=== PATIENT | female | born 1990 | race Caucasian/White ===

== ENCOUNTER → 2016-10-06 | Outpatient (CLI) | payer OTHER ==
[~2016-10-06] MED LIST: AMBIEN 10MG10 MG PO; CEPHALEXIN500 M1 PO; KLONOPIN 0.5MG0.5 MG PO; LAMICTAL 25MG T25 MG PO; LOMOTIL 0.025 M1 TAB PO; NAPROSYN500 MG PO; NO HOME MEDICATIONS; NORCO 325 MG-51 TAB PO; PERCOCET 325 MG1 TA2 PO; PHENERGAN 25 TA25 MG PO; ZOFRAN 4MG T4 MG/TAB PO
== END ==
LOC: BHSO 15:58
DX: F33.0 Major depressive disorder, recurrent, mild (principal)

== ENCOUNTER → 2016-10-09 | Outpatient (CLI) | payer OTHER | LOC: BHSO 15:33 | DX: F31.81 Bipolar II disorder (principal) ==

== ENCOUNTER → 2016-11-07 | Outpatient (CLI) | payer OTHER | LOC: BHSO 15:55 | DX: F33.1 Major depressive disorder, recurrent, moderate (principal) ==

== ENCOUNTER → 2016-11-28 | Outpatient (REF) | LOC: ZLAB.WCH 12:10 | DX: Z01.89 Encounter for other specified special examinations (principal) ==

== ENCOUNTER → 2016-11-29 | Outpatient (REF) | LOC: ZLAB.WCH 14:01 | DX: Z01.89 Encounter for other specified special examinations (principal) ==

== ENCOUNTER → 2016-11-29 | Outpatient (REF) | LOC: ZLAB.WCH 19:40 | DX: Z01.89 Encounter for other specified special examinations (principal) ==

== ENCOUNTER → 2016-12-22 | Outpatient (CLI) | payer OTHER | LOC: BHSO 15:53 | DX: F33.1 Major depressive disorder, recurrent, moderate (principal) ==

== ENCOUNTER 2016-12-24 03:28 | Emergency (ER) | payer OTHER ==
[~2016-12-24] VITALS: Ht 165.1 cm; Wt 58.2 kg
[~2016-12-24 03:28] MED LIST changes: -AMBIEN 10MG10 MG PO; -PERCOCET 325 MG1 TA2 PO; -ZOFRAN 4MG T4 MG/TAB PO
[2016-12-24 03:30] VITALS: TEMP 98
[2016-12-24] MEDS ORDERED: AMBIEN 10MG10 MG PO (03:34)
[2016-12-24 04:09] LABS: BASO % 0.5 % (0.0-2.0); EOS # 0.3 (0.0-0.7); EOS % 3.3 % (0-4.0); GRAN # 4.5 (1.4-6.5); GRAN % 50.7 % (42.2-75.2); HEMATOCRIT 40.3 % (37.0-47.0); HEMOGLOBIN 13.8 g/dl (12.5-16.0); LYMPH # 3.4 (1.2-3.4); LYMPH % 38.2 % (20.0-51.0); MEAN CELL VOLUME 102 fl (80.0-100.0); MEAN CORPUSCULAR HEMOGLOBIN 35 pg (27.0-31.0); MEAN CORPUSCULAR HGB CONC 34 g/dl (33.0-37.0); MEAN PLATELET VOLUME 10.5 fl (7.4-10.4); MONO # 0.6 (0.1-0.6); MONO % 7.2 % (1.7-9.3); PLATELET COUNT 250 K/mm3 (130-400); RED BLOOD COUNT 3.97 M/mm3 (4.10-5.30); WHITE BLOOD COUNT 8.8 K/mm3 (4.8-10.8)
[2016-12-24 04:15] LABS: PH 5 (5-8); URINE APPEARANCE Hazy; URINE BACTERIA Rare /hpf; URINE BILIRUBIN Negative (NEGATIVE); URINE BLOOD 1+ (NEGATIVE); URINE COLOR Yellow; URINE GLUCOSE Negative (NEGATIVE); URINE KETONE 1+ (NEGATIVE); URINE UROBILINOGEN Negative (NEGATIVE); URINE WBC 0-2 /hpf
[2016-12-24 04:19] LABS: ADJUSTED CALCIUM 9.2 mg/dL (8.4-10.2); ALBUMIN 4.6 gm/dL (3.5-5.0); BILIRUBIN,TOTAL 0.8 mg/dL (0.0-1.0); CALCIUM 9.7 mg/dL (8.4-10.2); CREATININE, serum 0.74 mg/dL (0.52-1.25); POTASSIUM 3.9 mmol/L (3.4-5.0); TOTAL PROTEIN 7.5 gm/dL (6.4-8.2)
[2016-12-24] MEDS ORDERED: PERCOCET 325 MG1 TA2 PO (05:50)
[2016-12-24 06:05] VITALS: BP 98/57; PULSE 82
== END 2016-12-24 06:05 | disposition home or self-care (01) ==
LOC: COL.ER 03:28
PROVIDERS: Emergency Medicine
DX: R10.31 Right lower quadrant pain (principal); Z87.442 Personal history of urinary calculi
CPT/HCPCS: J1170; J1885; J2405; J3010; J7030

== ENCOUNTER → 2017-01-05 | Outpatient (CLI) | payer OTHER ==
[~2017-01-05] MED LIST changes: +AMBIEN 10MG10 MG PO; +PERCOCET 325 MG1 TA2 PO; +ZOFRAN 4MG T4 MG/TAB PO
== END ==
LOC: BHSO 15:54
DX: F33.1 Major depressive disorder, recurrent, moderate (principal)

== ENCOUNTER → 2017-02-25 | Outpatient (CLI) | payer OTHER | LOC: BHSO 08:58 | DX: F33.2 Major depressive disorder, recurrent severe without psychotic features (principal) ==

== ENCOUNTER 2017-04-09 15:38 | Emergency (ER) | payer OTHER ==
[~2017-04-09] VITALS: Ht 165.1 cm; Wt 56.8 kg
[~2017-04-09 15:38] MED LIST changes: -ZOFRAN 4MG T4 MG/TAB PO
[2017-04-09 15:40] VITALS: TEMP 98.4
[2017-04-09 16:22] LABS: BASO % 0.5 % (0.0-2.0); EOS # 0.1 (0.0-0.7); EOS % 1.4 % (0-4.0); GRAN % 52.7 % (42.2-75.2); HEMATOCRIT 39.9 % (37.0-47.0); LYMPH # 2.8 (1.2-3.4); LYMPH % 36.8 % (20.0-51.0); MEAN CELL VOLUME 101 fl (80.0-100.0); MEAN CORPUSCULAR HEMOGLOBIN 35 pg (27.0-31.0); MEAN CORPUSCULAR HGB CONC 35 g/dl (33.0-37.0); MEAN PLATELET VOLUME 9.5 fl (7.4-10.4); MONO # 0.6 (0.1-0.6); MONO % 8.3 % (1.7-9.3); PLATELET COUNT 292 K/mm3 (130-400); RED BLOOD COUNT 3.97 M/mm3 (4.10-5.30); REDCELL DISTRIBUTION WIDTH-CV 12.7 % (11.5-14.5); WHITE BLOOD COUNT 7.7 K/mm3 (4.8-10.8)
[2017-04-09 16:23] LABS: PH 7 (5-8); SQUAMOUS EPITHELIAL 0-2 /hpf; URINE APPEARANCE Clear; URINE BACTERIA None Seen /hpf; URINE BILIRUBIN Negative (NEGATIVE); URINE BLOOD 3+ (NEGATIVE); URINE COLOR Yellow; URINE GLUCOSE Negative (NEGATIVE); URINE KETONE Negative (NEGATIVE); URINE RBC 0-2 /hpf; URINE UROBILINOGEN Negative (NEGATIVE); URINE WBC 0-2 /hpf
[2017-04-09 16:35] LABS: ADJUSTED CALCIUM 9.5 mg/dL (8.4-10.2); ALANINE AMINOTRANSFERASE 21 U/L (9-52); ALBUMIN 4.9 gm/dL (3.5-5.0); ALKALINE PHOSPHATASE 56 U/L (50-136); ANION GAP 12 mmol/L (7-16); BILIRUBIN,TOTAL 0.4 mg/dL (0.0-1.0); BLOOD UREA NITROGEN 6 mg/dL (7-17); CALCIUM 10.2 mg/dL (8.4-10.2); CARBON DIOXIDE 26 mmol/L (22-30); CHLORIDE 102 mmol/L (98-107); CREATININE, serum 0.77 mg/dL (0.52-1.25); GLUCOSE 80 mg/dL (74-106); POTASSIUM 3.8 mmol/L (3.4-5.0); SODIUM 141 mmol/L (137-145); TOTAL PROTEIN 7.7 gm/dL (6.4-8.2)
[2017-04-09 17:15] LABS: C-REACTIVE PROTEIN < 0.5 mg/dL (0.0-0.9)
[2017-04-09] MEDS ORDERED: ZOFRAN 4MG T4 MG/TAB PO (17:26)
[2017-04-09 18:38] VITALS: BP 102/58; PULSE 79
== END 2017-04-09 18:47 | disposition home or self-care (01) ==
LOC: COL.ER 15:38
PROVIDERS: Emergency Medicine
DX: R10.31 Right lower quadrant pain (principal); Z87.442 Personal history of urinary calculi
CPT/HCPCS: J1170; J2405; J7030; Q9967

== ENCOUNTER → 2017-06-29 | Outpatient (CLI) | payer BC ==
[~2017-06-29] MED LIST changes: +ZOFRAN 4MG T4 MG/TAB PO
== END ==
LOC: BHSO 16:21
DX: F41.1 Generalized anxiety disorder (principal)

== ENCOUNTER 2017-10-15 14:12 | Emergency (ER) | payer BC ==
[~2017-10-15] VITALS: Ht 165.1 cm; Wt 56.8 kg
[2017-10-15 14:16] VITALS: TEMP 99.3
[2017-10-15] MEDS ORDERED: FLOMAX 0.40.4 MG/CAP PO (14:19)
[2017-10-15 15:27] LABS: COLLECTION METHOD CLEAN CATCH
[2017-10-15 15:28] LABS: BASO % 0.3 % (0.0-2.0); EOS # 0.1 (0.0-0.7); GRAN # 5.8 (1.4-6.5); GRAN % 62.2 % (42.2-75.2); HEMATOCRIT 39.4 % (37.0-47.0); HEMOGLOBIN 13.5 g/dl (12.5-16.0); LYMPH # 2.7 (1.2-3.4); LYMPH % 28.9 % (20.0-51.0); MEAN CELL VOLUME 106 fl (80.0-100.0); MEAN CORPUSCULAR HEMOGLOBIN 36 pg (27.0-31.0); MEAN CORPUSCULAR HGB CONC 34 g/dl (33.0-37.0); MEAN PLATELET VOLUME 9.7 fl (7.4-10.4); MONO # 0.7 (0.1-0.6); MONO % 7.3 % (1.7-9.3); PLATELET COUNT 328 K/mm3 (130-400); RED BLOOD COUNT 3.71 M/mm3 (4.10-5.30); REDCELL DISTRIBUTION WIDTH-CV 12.7 % (11.5-14.5)
[2017-10-15 15:36] LABS: MUCOUS Present /lpf; PH 5 (5-8); SQUAMOUS EPITHELIAL 20-50 /hpf; URINE APPEARANCE Cloudy; URINE BACTERIA Rare /hpf; URINE BILIRUBIN Negative (NEGATIVE); URINE BLOOD Negative (NEGATIVE); URINE COLOR Yellow; URINE GLUCOSE Negative (NEGATIVE); URINE KETONE Negative (NEGATIVE); URINE LEUKOCYTE ESTERASE 2+ (NEGATIVE); URINE NITRATE Negative (NEGATIVE); URINE PROTEIN(semi-quant) Negative (NEGATIVE)
[2017-10-15 15:41] LABS: ALBUMIN 4.7 gm/dL (3.5-5.0); BILIRUBIN,TOTAL 0.6 mg/dL (0.0-1.0); CREATININE, serum 0.69 mg/dL (0.52-1.25); POTASSIUM 3.8 mmol/L (3.4-5.0); TOTAL PROTEIN 7.2 gm/dL (6.4-8.2)
[2017-10-15] MEDS ORDERED: NORCO 325 MG-51 TAB PO (18:51)
[2017-10-15] MEDS ORDERED: MACROBID 1100 MG/CAP PO (18:51)
[2017-10-15 19:17] VITALS: BP 112/62; PULSE 88
== END 2017-10-15 19:19 | disposition home or self-care (01) ==
LOC: COL.ER 14:12
PROVIDERS: Family Medicine
DX: N30.00 Acute cystitis without hematuria (principal); Z87.442 Personal history of urinary calculi
CPT/HCPCS: J0696; J1170; J1885; J2550; J7030; Q9967